=== PATIENT | female | born 1975 | race Caucasian/White ===

== ENCOUNTER 2020-09-24 10:45 | Outpatient (RCR) | payer MEDICAID, SELFPAY | END 2020-10-22 12:00 | disposition other institution (70) | LOC: HO.PT 10:45 | PROVIDERS: PCP Internal Medicine; Visit Provider Internal Medicine | DX: M54.17 Radiculopathy, lumbosacral region (principal); M54.2 Cervicalgia | CPT/HCPCS: 97110; 97140; 97161 ==